=== PATIENT | male | born 1985 | race African-American/Black ===

== ENCOUNTER 2017-04-22 02:51 | Emergency (ER) | payer MEDICAID ==
[~2017-04-22] VITALS: Ht 188 cm; Wt 104.5 kg
[2017-04-22] MEDS ORDERED: KETOROLAC 60MG/2ML VIAL IM ONE (06:45)
[2017-04-22 08:25] VITALS: BP 115/63
== END 2017-04-22 08:30 | disposition home or self-care (01) ==
LOC: ER 02:51
DX: M54.40 Lumbago with sciatica, unspecified side (principal); F17.200 Nicotine dependence, unspecified, uncomplicated
CPT/HCPCS: 72100; 96372; 99284; J1885

== ENCOUNTER 2019-11-16 02:38 | Emergency (ER) | payer MEDICAID, OTHER ==
[~2019-11-16] VITALS: Ht 188 cm; Wt 98.0 kg
[2019-11-16] MEDS ORDERED: SODIUM CHLORIDE 0.9% 1,000 ML IV ONE (03:15)
[2019-11-16] MEDS ORDERED: ONDANSETRON HCL 4MG/2ML INJ IV STA (03:15)
[2019-11-16 03:44] LABS: BASOPHILS % 0.3 % (0.0-2.0); EOSINOPHILS % 5.9 % (0.0-5.0); HEMATOCRIT. 44.4 % (42.0-52.0); HEMOGLOBIN. 15.1 g/dL (14.0-18.0); LYMPHOCYTES % 44.5 % (20.0-50.0); MEAN CORPUSCULAR VOLUME 91.4 fL (80.0-94.0); MEAN PLATELET VOLUME 8.3 fl (7.4-10.4); MONOCYTES % 13.7 % (2.0-8.0); NEUTROPHILS % 35.6 % (40.0-76.0); PLATELET 263 x1000/uL (130-400); RED BLOOD CELL COUNT 4.86 mill/uL (4.7-6.1); RED CELL DISTRIBUTION WIDTH 13.9 % (11.6-14.6)
[2019-11-16 03:50] LABS: CHLORIDE 107 mEq/L (98-107)
[2019-11-16 05:30] VITALS: BP 136/73
== END 2019-11-16 05:38 | disposition home or self-care (01) ==
LOC: ER 02:38
DX: K52.9 Noninfective gastroenteritis and colitis, unspecified (principal); R03.0 Elevated blood-pressure reading, without diagnosis of hypertension
CPT/HCPCS: 36415; 80053; 83690; 85025; 96361; 96374; 99283; J2405; J7030

== ENCOUNTER 2020-07-12 17:27 | Emergency (ER) | payer MEDICAID, OTHER ==
[~2020-07-12] VITALS: Ht 188 cm; Wt 100.0 kg
[2020-07-12] MEDS ORDERED: CEPHALEXIN 250MG CAPSULE PO ONE (18:15)
[2020-07-12] MEDS ORDERED: ACETAMINOPHEN 325MG TABLET PO ONE (18:15)
[2020-07-12 20:05] VITALS: BP 138/74
== END 2020-07-12 20:06 | disposition home or self-care (01) ==
LOC: ER 17:27
DX: L03.115 Cellulitis of right lower limb (principal); R03.0 Elevated blood-pressure reading, without diagnosis of hypertension
CPT/HCPCS: 93005; 93971; 99284

== ENCOUNTER 2020-07-24 18:28 | Emergency (ER) | payer OTHER ==
[~2020-07-24] VITALS: Ht 182.9 cm; Wt 100.0 kg
[2020-07-24 19:12] VITALS: BP 138/92
== END 2020-07-24 19:13 | disposition home or self-care (01) ==
LOC: ER 18:28
DX: L03.115 Cellulitis of right lower limb (principal); F17.200 Nicotine dependence, unspecified, uncomplicated; Z48.00 Encounter for change or removal of nonsurgical wound dressing
CPT/HCPCS: 99283

== ENCOUNTER 2020-09-03 00:47 | Emergency (ER) | payer MEDICAID, OTHER ==
[~2020-09-03] VITALS: Ht 188 cm; Wt 100.0 kg
[2020-09-03 03:01] VITALS: BP 135/81
== END 2020-09-03 03:03 | disposition home or self-care (01) ==
LOC: ER 00:47
DX: M54.41 Lumbago with sciatica, right side (principal); R03.0 Elevated blood-pressure reading, without diagnosis of hypertension
CPT/HCPCS: 99282

== ENCOUNTER 2021-01-22 23:48 | Emergency (ER) | payer MEDICAID, OTHER ==
[~2021-01-22] VITALS: Ht 188 cm; Wt 82.0 kg
[2021-01-23 00:04] VITALS: BP 189/104
[2021-01-23] MEDS ORDERED: CLOT15CR5 TP (00:50)
[2021-01-23] MEDS ORDERED: NYST15PO4 TP (00:50)
[2021-01-23] MEDS ORDERED: TC025C15 TP (00:50)
== END 2021-01-23 01:02 | disposition home or self-care (01) ==
LOC: ER 23:48
DX: R21 Rash and other nonspecific skin eruption (principal)
CPT/HCPCS: 99281

== ENCOUNTER 2024-07-17 01:42 | Emergency (ER) | payer OTHER, BC ==
[~2024-07-17] VITALS: Ht 188 cm; Wt 124.0 kg
[~2024-07-17 01:42] MED LIST: CLOT15CR5 TP; NYST15PO4 TP; TC025C15 TP
[2024-07-17 01:55] VITALS: BP 155/93; PULSE 75; RESP 16; TEMP 36.39180; O2SAT 100
[2024-07-17] MEDS: DEXAMETHASONE 10 MG/ML VIAL IM ONE (01:55)
== END 2024-07-17 02:20 | disposition home or self-care (01) ==
LOC: ER 01:42
DX: M54.40 Lumbago with sciatica, unspecified side (principal)
CPT/HCPCS: 99283; 96372; J1100